=== PATIENT | male | born 1965 | race Caucasian/White ===

== ENCOUNTER 2020-08-01 14:25 | Emergency (ER) | payer BC, OTHER ==
[2020-08-01 14:58] VITALS: TEMP 98.7
[2020-08-01 15:13] VITALS: BMI 36.3
[2020-08-01] MEDS ORDERED: BAMLANIVIMAB 700 MG, ETESEVIMAB 1,400 MG in SODIUM CHLORIDE 250 ML IVPB ONE (15:14)
[2020-08-01 19:11] LABS: BASO % 0.3 % (0-2.0); EOS % 0.4 % (0-4.5); HEMATOCRIT 47.2 % (35.4-49); LYMPH % 33.1 % (8-40); MCH 29.6 pg (25.7-33.7); MCHC 33.8 g/dl (32.0-35.9); MEAN CELL VOLUME 87.6 fl (80-96); MEAN PLT VOLUME 8.6 fl (7.5-11.1); MONO % 15.9 % (3.8-10.2); NEUT % 50.3 % (42.8-82.8); PLATELET COUNT 259 K/MM3 (134-434); RBC 5.39 M/mm3 (4.00-5.60); RDW 13.2 % (11.9-15.9); WHITE BLOOD COUNT 4.5 K/mm3 (4.0-10.0)
[2020-08-01 19:29] LABS: POTASSIUM 4.7 mmol/L (3.5-5.1)
[2020-08-01 19:32] VITALS: BP 127/61; PULSE 61
[2020-08-01 19:34] LABS: CALCIUM 9.4 mg/dL (8.5-10.1)
[2020-08-01 19:35] LABS: ALBUMIN 4.6 g/dl (3.4-5.0); BLOOD UREA NITROGEN 15.9 mg/dL (7-18)
[2020-08-01 19:38] LABS: CREATININE 0.8 mg/dL (0.55-1.3)
[2020-08-01 19:40] LABS: BILIRUBIN,TOTAL 0.5 mg/dL (0.2-1)
[2020-08-01 19:41] LABS: TOT PROT 8.2 g/dl (6.4-8.2)
== END 2020-08-01 20:50 | disposition home or self-care (01) ==
LOC: JER 14:25
DX: U07.1 COVID-19 (principal)
CPT/HCPCS: 36415; 80053; 85025; 99284-25; M0239; Q0239; Q0245